=== PATIENT | male | born 1945 | race Caucasian/White ===

== ENCOUNTER → 2020-10-26 11:13 | Outpatient (BNVA) | payer MEDICARE, OTHER, SELFPAY | PROVIDERS: PCP Specialist; Visit Provider Specialist | DX: I69.354 Hemiplegia and hemiparesis following cerebral infarction affecting left non-dominant side (principal); F48.2 Pseudobulbar affect; R20.0 Anesthesia of skin; R20.2 Paresthesia of skin; Z79.01 Long term (current) use of anticoagulants; Z87.891 Personal history of nicotine dependence | CPT/HCPCS: 82607; 99204 ==

== ENCOUNTER 2020-10-26 15:21 | Outpatient (CLI) | payer MEDICARE, OTHER, SELFPAY ==
[2020-10-26 16:28] LABS: Vitamin B12 617 pg/mL (232-1245)
== END 2020-10-26 15:22 | disposition home or self-care (01) ==
LOC: LAB 15:28
PROVIDERS: PCP Specialist; Visit Provider Specialist
DX: R20.0 Anesthesia of skin (principal); R20.2 Paresthesia of skin
CPT/HCPCS: 82607

== ENCOUNTER → 2020-11-16 13:51 | Outpatient (BNVA) | payer MEDICARE, OTHER, SELFPAY | PROVIDERS: PCP Specialist; Visit Provider Nurse Practitioner | DX: S69.92XA Unspecified injury of left wrist, hand and finger(s), initial encounter (principal); X58.XXXA Exposure to other specified factors, initial encounter | CPT/HCPCS: 73130 ==

== ENCOUNTER 2020-11-27 10:08 | Outpatient (CLI) | payer MEDICARE, OTHER, SELFPAY ==
--- NOTE | 2020-11-27 10:25 | MR_ITS ---
WS: [id number] MRI BRAIN WITHOUT CONTRAST HISTORY: CEREBRAL INFARCTION, UNSPECIFIED, persistent LEFT arm and hand weakness. COMPARISON: MRI brain 08/19/2020 TECHNIQUE: Diffusion imaging, multiplanar T1, T2 and FLAIR imaging obtained. Diffusion-weighted images are normal. The acute infarcts noted on the prior MRI in the brittany and cereb ellum have returned to normal signal on the diffusion-weighted sequences. Evolving remote hemorrhagic infarct in the superior LEFT cerebellum with volume loss and encephalomal acia is evident. There are also small lacunar infarcts in the RIGHT brittany and the superior lateral RIG HT cerebellum which have appropriately evolved since the prior study. There are a few scattered T2 and FLAIR signal hyperintensities within the white matter above the tent orium. There is a prior infarct in the region of the hand motor cortex of the LEFT brain. There are s everal small infarcts and ischemic changes along the LEFT motor cortex. These changes are not new. No change since 08/19/2020. Ventricles and extra-axial spaces are mildly prominent on the basis of atrophy. Dural venous sinuses and [place] demonstrate no abnormality on this unenhanced studies. Paranasal sinuses: Clear. Mastoid air cells: Fluid in the mastoid air cells bilaterally. Calvarium and scalp: Intact. MR/MR head wo con* [id number] IMPRESSION: 1. No acute diffusion-weighted abnormalities. 2. 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 Additional lacunar infarcts in the RIGHT cerebellum and RIGHT brittany are also kian ntified. 3. Small lacunar infarcts and ischemic changes within the LEFT cerebrum involv ing the motor cortex to the RIGHT hand. These are not new findings were present on 08/19/2020. 4. Bilateral mastoid air cell disease.
== END 2020-11-27 10:09 | disposition home or self-care (01) ==
PROVIDERS: PCP Specialist; Visit Provider Specialist
DX: I63.9 Cerebral infarction, unspecified (principal)
CPT/HCPCS: 70551

== ENCOUNTER → 2020-11-30 11:02 | Outpatient (BNVA) | payer MEDICARE, OTHER, SELFPAY | PROVIDERS: PCP Specialist; Visit Provider Specialist | DX: I69.354 Hemiplegia and hemiparesis following cerebral infarction affecting left non-dominant side (principal); R26.89 Other abnormalities of gait and mobility; I69.398 Other sequelae of cerebral infarction; I48.91 Unspecified atrial fibrillation | CPT/HCPCS: 64642; 64644; 95874; 99213; 99214; J0585 ==

== ENCOUNTER 2021-01-23 11:11 | Outpatient (CLI) | payer MEDICARE, OTHER, SELFPAY ==
--- NOTE | 2021-01-23 11:00 | USCV_ITS ---
Akhil Briones Age: 75 Gender: M : 1945 Exam Date: 01/23/2021 10:55 Ordering Phys: Abhi Olson DPM Technologist: Nilson Hayward Electrical Experimental Mechanic Exam Location: [facility] [place] Indication: PRE OP RIGHT LEFT Brachial 120.00 mmHg Brachial 114.00 mmHg Pressure (mmHg) Waveform Pressure (mmHg) Waveform 131.00 High Thigh 127.00 131.00 Below Knee 139.00 124.00 CONCRETE MIXER OPERATOR 127.00 144.00 DPA 142.00 1.20 Ankle/Brachial Index 1.18 103.00 Pre-Exercise Toe Pressure 148.00 0.86 Pre-Exercise Toe/Brachial Index 1.23 FINDINGS Normal resting ABIs bilaterally Normal resting TBI bilaterally Normal PVR waveforms bilaterally CONCLUSIONS No evidence of any significant arterial obstruction, based on the above findings. Dr Diane Arellano MD [facility] (Electronically Signed) Final Date: 24 January 2021 08:49 S
== END 2021-01-23 11:12 | disposition home or self-care (01) ==
PROVIDERS: PCP Nurse Practitioner Family; Visit Provider Podiatrist Foot & Ankle Surgery
DX: Z01.818 Encounter for other preprocedural examination (principal)
CPT/HCPCS: 93923

== ENCOUNTER → 2021-02-21 11:05 | Outpatient (BNVA) | payer MEDICARE, OTHER, SELFPAY | PROVIDERS: PCP Nurse Practitioner Family; Visit Provider Specialist | DX: I69.393 Ataxia following cerebral infarction (principal); I69.354 Hemiplegia and hemiparesis following cerebral infarction affecting left non-dominant side | CPT/HCPCS: 64644; 99214; J0585 ==

== ENCOUNTER → 2021-05-16 12:08 | Outpatient (BNVA) | payer MEDICARE, OTHER, SELFPAY | PROVIDERS: PCP Nurse Practitioner Family; Visit Provider Specialist | DX: I69.398 Other sequelae of cerebral infarction (principal); G25.2 Other specified forms of tremor; Z79.01 Long term (current) use of anticoagulants; Z87.891 Personal history of nicotine dependence | CPT/HCPCS: 99214 ==

== ENCOUNTER 2021-05-27 06:00 | Outpatient (RCR) | payer MEDICARE, OTHER, SELFPAY | END 2021-06-06 23:59 | disposition home or self-care (01) | LOC: SPT 06:00 | PROVIDERS: PCP Nurse Practitioner Family; Referring Provider Specialist; Visit Provider Specialist | DX: G81.10 Spastic hemiplegia affecting unspecified side (principal) | CPT/HCPCS: 97110; 97112; 97162 ==

== ENCOUNTER 2021-06-07 06:00 | Outpatient (RCR) | payer MEDICARE, OTHER, SELFPAY | END 2021-07-06 23:59 | disposition home or self-care (01) | LOC: SPT 06:00 | PROVIDERS: PCP Nurse Practitioner Family; Referring Provider Specialist; Visit Provider Specialist | DX: G81.10 Spastic hemiplegia affecting unspecified side (principal) | CPT/HCPCS: 97110; 97112; 97116; 97530 ==

== ENCOUNTER 2021-07-07 | Outpatient (RCR) | payer MEDICARE, OTHER, SELFPAY | END 2021-08-06 23:59 | disposition home or self-care (01) | LOC: SPT | PROVIDERS: PCP Nurse Practitioner Family; Referring Provider Specialist; Visit Provider Specialist | DX: G81.14 Spastic hemiplegia affecting left nondominant side (principal) | CPT/HCPCS: 97110; 97112 ==

== ENCOUNTER 2021-08-07 06:00 | Outpatient (RCR) | payer MEDICARE, OTHER, SELFPAY | END 2021-09-05 23:59 | disposition home or self-care (01) | LOC: SPT 06:00 | PROVIDERS: PCP Nurse Practitioner Family; Referring Provider Specialist; Visit Provider Specialist | DX: G81.10 Spastic hemiplegia affecting unspecified side (principal) | CPT/HCPCS: 97110; 97112 ==

== ENCOUNTER → 2021-08-27 09:44 | Outpatient (BNVA) | payer MEDICARE, OTHER, SELFPAY | PROVIDERS: PCP Nurse Practitioner Family; Visit Provider Podiatrist Foot & Ankle Surgery | DX: L60.3 Nail dystrophy (principal); L60.8 Other nail disorders; I73.9 Peripheral vascular disease, unspecified; M79.673 Pain in unspecified foot | CPT/HCPCS: 11721 ==

== ENCOUNTER → 2021-11-19 09:20 | Outpatient (BNVA) | payer MEDICARE, OTHER, SELFPAY | PROVIDERS: PCP Nurse Practitioner Family; Visit Provider Podiatrist Foot & Ankle Surgery | DX: L60.3 Nail dystrophy (principal); L60.8 Other nail disorders; I73.9 Peripheral vascular disease, unspecified | CPT/HCPCS: 11721 ==

== ENCOUNTER → 2021-11-29 09:23 | Outpatient (BNVA) | payer MEDICARE, OTHER, SELFPAY | PROVIDERS: PCP Nurse Practitioner Family; Visit Provider Specialist | DX: I69.354 Hemiplegia and hemiparesis following cerebral infarction affecting left non-dominant side (principal); G24.9 Dystonia, unspecified; F32.A Depression, unspecified | CPT/HCPCS: 64642; 99214 ==

== ENCOUNTER 2022-01-01 06:00 | Outpatient (RCR) | payer MEDICARE, OTHER, SELFPAY | END 2022-01-06 23:59 | disposition home or self-care (01) | LOC: SPT 06:00 | PROVIDERS: PCP Nurse Practitioner Family; Visit Provider Specialist | DX: G81.10 Spastic hemiplegia affecting unspecified side (principal); R53.1 Weakness | CPT/HCPCS: 97162 ==

== ENCOUNTER 2022-01-07 06:00 | Outpatient (RCR) | payer MEDICARE, OTHER, SELFPAY | END 2022-02-05 23:59 | disposition home or self-care (01) | LOC: SPT 06:00 | PROVIDERS: PCP Nurse Practitioner Family; Visit Provider Specialist | DX: G81.10 Spastic hemiplegia affecting unspecified side (principal); R53.1 Weakness | CPT/HCPCS: 97113 ==

== ENCOUNTER → 2022-02-04 11:25 | Outpatient (BNVA) | payer MEDICARE, OTHER, SELFPAY | PROVIDERS: PCP Nurse Practitioner Family; Visit Provider Podiatrist Foot & Ankle Surgery | DX: I73.9 Peripheral vascular disease, unspecified (principal); L60.8 Other nail disorders; L60.3 Nail dystrophy | CPT/HCPCS: 11721 ==

== ENCOUNTER 2022-02-06 06:00 | Outpatient (RCR) | payer MEDICARE, OTHER, SELFPAY | END 2022-03-05 23:59 | disposition home or self-care (01) | LOC: SPT 06:00 | PROVIDERS: PCP Nurse Practitioner Family; Visit Provider Specialist | DX: G81.10 Spastic hemiplegia affecting unspecified side (principal); R53.1 Weakness | CPT/HCPCS: 97113; 97530 ==

== ENCOUNTER → 2022-02-24 09:22 | Outpatient (BNVA) | payer MEDICARE, OTHER, SELFPAY | PROVIDERS: PCP Nurse Practitioner Family; Visit Provider Specialist | DX: I69.398 Other sequelae of cerebral infarction (principal); G25.2 Other specified forms of tremor | CPT/HCPCS: 99214 ==

== ENCOUNTER → 2022-04-29 10:46 | Outpatient (BNVA) | payer MEDICARE, OTHER, SELFPAY | PROVIDERS: PCP Nurse Practitioner Family; Visit Provider Podiatrist Foot & Ankle Surgery | DX: I73.9 Peripheral vascular disease, unspecified (principal); L60.8 Other nail disorders; L60.3 Nail dystrophy | CPT/HCPCS: 11721 ==

== ENCOUNTER → 2022-06-02 11:44 | Outpatient (BNVA) | payer MEDICARE, OTHER, SELFPAY | PROVIDERS: PCP Nurse Practitioner Family; Visit Provider Specialist | DX: I69.398 Other sequelae of cerebral infarction (principal); G25.2 Other specified forms of tremor; F17.290 Nicotine dependence, other tobacco product, uncomplicated; J44.9 Chronic obstructive pulmonary disease, unspecified | CPT/HCPCS: 99213 ==

== ENCOUNTER → 2022-08-07 10:12 | Outpatient (BNVA) | payer MEDICARE, OTHER, SELFPAY | PROVIDERS: PCP Nurse Practitioner Family; Visit Provider Podiatrist Foot & Ankle Surgery | DX: I73.9 Peripheral vascular disease, unspecified (principal); L60.8 Other nail disorders; L60.3 Nail dystrophy | CPT/HCPCS: 11721 ==

== ENCOUNTER → 2022-09-03 15:01 | Outpatient (BNVA) | payer MEDICARE, OTHER, SELFPAY | PROVIDERS: PCP Nurse Practitioner Family; Visit Provider Specialist | DX: R25.1 Tremor, unspecified (principal); I69.354 Hemiplegia and hemiparesis following cerebral infarction affecting left non-dominant side | CPT/HCPCS: 99214 ==

== ENCOUNTER → 2022-10-09 12:34 | Outpatient (BNVA) | payer MEDICARE, OTHER, SELFPAY | PROVIDERS: PCP Nurse Practitioner Family; Visit Provider Podiatrist Foot & Ankle Surgery | DX: L60.3 Nail dystrophy (principal); L60.8 Other nail disorders; I73.9 Peripheral vascular disease, unspecified | CPT/HCPCS: 11721 ==

== ENCOUNTER → 2023-01-07 13:05 | Outpatient (BNVA) | payer MEDICARE, OTHER, SELFPAY | PROVIDERS: PCP Nurse Practitioner Family; Visit Provider Podiatrist Foot & Ankle Surgery | DX: L60.3 Nail dystrophy (principal); L60.8 Other nail disorders; I73.9 Peripheral vascular disease, unspecified | CPT/HCPCS: 11721 ==

== ENCOUNTER → 2023-03-11 14:47 | Outpatient (BNVA) | payer MEDICARE, OTHER, SELFPAY | PROVIDERS: PCP Nurse Practitioner Family; Visit Provider Specialist | DX: R25.1 Tremor, unspecified (principal); I69.359 Hemiplegia and hemiparesis following cerebral infarction affecting unspecified side; I63.50 Cerebral infarction due to unspecified occlusion or stenosis of unspecified cerebral artery | CPT/HCPCS: 99214 ==

== ENCOUNTER → 2023-04-29 13:26 | Outpatient (BNVA) | payer MEDICARE, SELFPAY | PROVIDERS: PCP Nurse Practitioner Family; Visit Provider Podiatrist Foot & Ankle Surgery | DX: L60.3 Nail dystrophy (principal); L60.8 Other nail disorders; I73.9 Peripheral vascular disease, unspecified | CPT/HCPCS: 11721 ==

== ENCOUNTER → 2023-07-27 15:17 | Outpatient (BNVA) | payer MEDICARE, SELFPAY | PROVIDERS: PCP Nurse Practitioner Family; Visit Provider Podiatrist Foot & Ankle Surgery | DX: L60.3 Nail dystrophy (principal); L60.8 Other nail disorders; I73.9 Peripheral vascular disease, unspecified | CPT/HCPCS: 11721 ==

== ENCOUNTER → 2023-08-18 15:33 | Outpatient (BNVA) | payer MEDICARE, SELFPAY | PROVIDERS: PCP Nurse Practitioner Family; Visit Provider Specialist | DX: R49.0 Dysphonia; R25.1 Tremor, unspecified; I69.354 Hemiplegia and hemiparesis following cerebral infarction affecting left non-dominant side; F48.2 Pseudobulbar affect; F17.200 Nicotine dependence, unspecified, uncomplicated | CPT/HCPCS: 99213 ==

== ENCOUNTER 2023-08-28 12:58 | Outpatient (CLI) | payer MEDICARE, OTHER, SELFPAY ==
--- NOTE | 2023-08-28 13:00 | CTR_ITS ---
PROCEDURE INFORMATION: Exam: CT Chest Without Contrast; Diagnostic Exam date and time: 08/28/2023 1:14 PM Age: 78 years old Clinical indication: Condition or disease; Lung condition and disease; Pulmonary nodule, solitary; Additional info: F17.200 - nicotine dependence, unspecified, uncomplicated TECHNIQUE: Imaging protocol: Diagnostic computed tomography of the chest without contrast. Radiation optimization: All CT scans at this facility use at least one of these dose optimization techniques: automated exposure control; mA and/or kV adjustment per patient size (includes targeted exams where dose is matched to clinical indication); or iterative reconstruction. COMPARISON: CR XR chest 2V* [id number] 08/17/2020 7:14 PM RADIATION DOSE METRICS: Total DLP (mGy-cm): 459.41 FINDINGS: Thyroid: No significant thyroid pathology. Lungs: Mild areas of scar versus atelectasis . Lobulated nodule versus 2 adjacent nodules aggregate up to 5.5 x 4.0 mm in maximum dimension on series 4, image 34 in the right upper lobe. 4 mm. perifissural nodule right minor series 438 most likely scar 3 mm right lower lobe nodule series 4, image 50 mild pulmonary emphysema. Pleural spaces: No pleural effusion. Heart: Unremarkable. No cardiomegaly. No pericardial effusion. Coronary arteries: Coronary artery calcifications. Esophagus: Mild mural thickening distal thoracic esophagus. Lymph nodes: No evidence of lymphadenopathy. Vasculature: No evidence of thoracic aortic aneurysm. Liver: Hepatic steatosis. Gallbladder and biliary ducts: Cholelithiasis. Bones/joints: Mild degenerative change present in the spine. Soft tissues: Bilateral gynecomastia. CT/CT chest [facility] [id number] IMPRESSION: 1. No acute pathology 2. Small pulmonary nodules largest measuring 5 mm in mean diameter in the right upper lobe; per Fleischner criteria 12 month follow-up is recommended for surveillance. 3. Minor findings noted above including hepatic steatosis and cholelithiasis.
== END 2023-08-28 12:59 | disposition home or self-care (01) ==
LOC: RAD 12:58
PROVIDERS: PCP Nurse Practitioner Family; Visit Provider Specialist
DX: J98.4 Other disorders of lung (principal); F17.200 Nicotine dependence, unspecified, uncomplicated; R91.8 Other nonspecific abnormal finding of lung field; J43.8 Other emphysema; K22.89 Other specified disease of esophagus; K76.0 Fatty (change of) liver, not elsewhere classified; K80.20 Calculus of gallbladder without cholecystitis without obstruction; N62 Hypertrophy of breast
CPT/HCPCS: 71250

== ENCOUNTER → 2023-10-22 15:00 | Outpatient (BNVA) | payer MEDICARE, OTHER, SELFPAY | PROVIDERS: PCP Nurse Practitioner Family; Visit Provider Podiatrist Foot & Ankle Surgery | DX: L60.3 Nail dystrophy (principal); L60.8 Other nail disorders; I73.9 Peripheral vascular disease, unspecified | CPT/HCPCS: 11721 ==

== ENCOUNTER → 2023-12-02 15:15 | Outpatient (BNVA) | payer MEDICARE, OTHER, SELFPAY | PROVIDERS: PCP Nurse Practitioner Family; Visit Provider Specialist | DX: F17.200 Nicotine dependence, unspecified, uncomplicated (principal); R49.0 Dysphonia; R25.1 Tremor, unspecified; F48.2 Pseudobulbar affect; I69.352 Hemiplegia and hemiparesis following cerebral infarction affecting left dominant side | CPT/HCPCS: 99212 ==

== ENCOUNTER → 2024-01-06 15:05 | Outpatient (BNVA) | payer MEDICARE, OTHER, SELFPAY | PROVIDERS: PCP Nurse Practitioner Family; Visit Provider Podiatrist Foot & Ankle Surgery | DX: L60.3 Nail dystrophy (principal); L60.8 Other nail disorders; I73.9 Peripheral vascular disease, unspecified | CPT/HCPCS: 11721 ==

== ENCOUNTER → 2024-03-23 15:28 | Outpatient (BNVA) | payer MEDICARE, OTHER, SELFPAY | PROVIDERS: PCP Nurse Practitioner Family; Visit Provider Podiatrist Foot & Ankle Surgery | DX: L60.3 Nail dystrophy (principal); L60.8 Other nail disorders; I73.9 Peripheral vascular disease, unspecified | CPT/HCPCS: 11721 ==

== ENCOUNTER → 2024-05-03 13:54 | Outpatient (BNVA) | payer MEDICARE, OTHER, SELFPAY | PROVIDERS: PCP Nurse Practitioner Family; Visit Provider Specialist | DX: R49.0 Dysphonia (principal); R25.1 Tremor, unspecified; F48.2 Pseudobulbar affect; F17.210 Nicotine dependence, cigarettes, uncomplicated | CPT/HCPCS: G0463 ==

== ENCOUNTER → 2024-06-08 14:22 | Outpatient (BNVA) | payer MEDICARE, OTHER, SELFPAY | PROVIDERS: PCP Nurse Practitioner Family; Visit Provider Podiatrist Foot & Ankle Surgery | DX: I73.9 Peripheral vascular disease, unspecified (principal); L60.3 Nail dystrophy; L60.8 Other nail disorders | CPT/HCPCS: 11721 ==

== ENCOUNTER → 2024-09-05 14:25 | Outpatient (BNVA) | payer MEDICARE, OTHER, SELFPAY | PROVIDERS: PCP Nurse Practitioner Family; Visit Provider Podiatrist Foot & Ankle Surgery | DX: I73.9 Peripheral vascular disease, unspecified (principal); L60.8 Other nail disorders; L60.3 Nail dystrophy | CPT/HCPCS: 11721 ==

== ENCOUNTER → 2024-12-12 14:11 | Outpatient (BNVA) | payer MEDICARE, OTHER, SELFPAY | PROVIDERS: PCP Nurse Practitioner Family; Visit Provider Podiatrist Foot & Ankle Surgery | DX: E11.8 Type 2 diabetes mellitus with unspecified complications (principal); L60.3 Nail dystrophy; L60.8 Other nail disorders; I73.9 Peripheral vascular disease, unspecified | CPT/HCPCS: 11721 ==